=== PATIENT | male | born 1995 | race American Indian/Alaskan Native ===

== ENCOUNTER 2019-01-09 23:04 | Emergency (ER) | payer OTHER ==
[2019-01-09 23:31] VITALS: BP 147/85
[2019-01-10] MEDS ORDERED: IBUPROFEN PO ONE (00:25)
[2019-01-10] MEDS ORDERED: AUGMENTIN 875 MG PO ONE (00:25)
--- NOTE | 2019-01-10 01:10 | Emergency Department Report ---
ED General Adult HPI - General Chief complaint: Wound/Laceration Stated complaint: MOUTH LAC Source: patient Mode of arrival: Ambulatory Limitations: No Limitations - History of Present Illness Initial comments: Patient is a 23-year-old AA male with no past medical history presents to the ED with complaint of acute onset persistent painful swollen puncture wound with purulent discharge in the inner lower lip after being hit on the mild 24 hours ago during a basketball practice. Patient states that in the process he bit his lower lip and now is painful, swollen with purulent discharge. Patient denies fever, chills, nausea, vomiting, dizziness, headache, chest pain or shortness of breath and sore throat. Patient also denies fall, loss of consciousness, syncope or seizures. MD Complaint: Inner lip laceration and swelling -: Sudden, hour(s) (24) Location: mouth (inner lower lip) Radiation: non-radiation Severity scale (0 -10): 4 Quality: burning, aching, sharp Consistency: constant Improves with: none Worsens with: none Associated Symptoms: denies other symptoms. denies: confusion, chest pain, cough, diaphoresis, fever/chills, headaches, loss of appetite, malaise, nausea/vomiting, rash, seizure, shortness of breath, syncope, weakness Treatments Prior to Arrival: none - Related Data Previous Rx's Medication Instructions Recorded Last Taken Type Acetaminophen/Codeine [Tylenol 1 tab PO Q6H PRN #10 tab 01/10/19 Unknown Rx /Codeine # 3 tab] Amoxicillin/Potassium Clav 1 each PO Q12H #20 tablet 01/10/19 Unknown Rx [Augmentin 875-125 Tablet] Ibuprofen [Motrin] 800 mg PO Q8HR PRN #24 tablet 01/10/19 Unknown Rx Allergies Allergy/AdvReac Type Severity Reaction Status Date / Time No Known Allergies Allergy Verified 07/16/15 12:31 ED Review of Systems ROS: Stated complaint: MOUTH LAC Other details as noted in HPI Constitutional: denies: chills, fever Eyes: denies: eye pain, eye discharge, vision change ENT: other (Inner lower lip laceration, swelling with purulent discharge). denies: ear pain, throat pain Respiratory: denies: cough, shortness of breath, wheezing Cardiovascular: denies: chest pain, palpitations Endocrine: no symptoms reported. denies: see HPI, flushing, intolerance to cold, increased hunger, unexplained weight gain, unexplained weight loss Gastrointestinal: denies: abdominal pain, nausea, diarrhea Genitourinary: denies: urgency, dysuria Musculoskeletal: denies: back pain, joint swelling, arthralgia Skin: denies: rash, lesions Neurological: denies: headache, weakness, paresthesias Psychiatric: denies: anxiety, depression Hematological/Lymphatic: denies: easy bleeding, easy bruising ED Past Medical Hx - Past Medical History Previous Medical History?: Yes Additional medical history: BACK INJURY/ PAIN - Surgical History Past Surgical History?: Yes Additional Surgical History: LEFT HAND SURGERY - Social History Smoking Status: Never Smoker Substance Use Type: None - Medications Home Medications: Home Medications Medication Instructions Recorded Confirmed Last Taken Type Acetaminophen/Codeine [Tylenol 1 tab PO Q6H PRN #10 tab 01/10/19 Unknown Rx /Codeine # 3 tab] Amoxicillin/Potassium Clav 1 each PO Q12H #20 tablet 01/10/19 Unknown Rx [Augmentin 875-125 Tablet] Ibuprofen [Motrin] 800 mg PO Q8HR PRN #24 tablet 01/10/19 Unknown Rx ED Physical Exam - General Limitations: No Limitations General appearance: alert, in no apparent distress - Head Head exam: Present: atraumatic, normocephalic, normal inspection - Eye Eye exam: Present: normal appearance, PERRL, EOMI. Absent: scleral icterus, conjunctival injection, nystagmus Pupils: Present: normal accommodation - ENT ENT exam: Present: normal exam, normal orophraynx, mucous membranes moist, TM's normal bilaterally, normal external ear exam, other (Swollen lower lip due to a puncture wound with purulent discharge and tenderness) - Neck Neck exam: Present: normal inspection, full ROM - Respiratory Respiratory exam: Present: normal lung sounds bilaterally. Absent: respiratory distress, wheezes, rales, stridor, chest wall tenderness, prolonged expiratory - Cardiovascular Cardiovascular Exam: Present: regular rate, normal rhythm. Absent: systolic murmur, diastolic murmur, rubs, gallop - GI/Abdominal GI/Abdominal exam: Present: soft, normal bowel sounds. Absent: distended, tenderness, guarding, rebound, hyperactive bowel sounds, hypoactive bowel sounds - Rectal Rectal exam: Present: deferred - Extremities Exam Extremities exam: Present: normal inspection, full ROM, normal capillary refill. Absent: tenderness, pedal edema, joint swelling, calf tenderness - Back Exam Back exam: Present: normal inspection, full ROM. Absent: tenderness, CVA tenderness (R), CVA tenderness (L), muscle spasm, paraspinal tenderness - Neurological Exam Neurological exam: Present: alert, oriented X3, CN II-XII intact, normal gait, reflexes normal - Psychiatric Psychiatric exam: Present: normal affect, normal mood - Skin Skin exam: Present: warm, dry, intact, normal color, other (Swollen severely tender intraoral lower lip puncture wound with purulent discharge). Absent: rash ED Course Vital Signs 01/09/19 23:28 Temperature 99 F Pulse Rate 68 Respiratory 18 Rate Blood Pressure 147/85 O2 Sat by Pulse 100 Oximetry - Reevaluation(s) Reevaluation #1: 01/10/19 01:15 This is 23-year-old male presented to the ED with a swollen, painful intraoral lower lip puncture wound with purulent discharge. In the ED, patient is alert and oriented 3 and is not in distress. Patient was treated for pain and also started on antibiotics. Patient was discharged home on pain medications and antibiotics and advised to follow-up with his primary care physician in 7-10 days for reevaluation or return to the ED immediately if symptoms get worse. ED Medical Decision Making - Medical Decision Making This is 23-year-old male presented to the ED with a swollen, painful intraoral lower lip puncture wound with purulent discharge. In the ED, patient is alert and oriented 3 and is not in distress. Patient was treated for pain and also started on antibiotics. Patient was discharged home on pain medications and antibiotics and advised to follow-up with his primary care physician in 7-10 days for reevaluation or return to the ED immediately if symptoms get worse. - Differential Diagnosis infected lower lip puncture wound; cellulitis; lip abscess, puncture wound Critical care attestation.: If time is entered above; I have spent that time in minutes in the direct care of this critically ill patient, excluding procedure time. ED Disposition Clinical Impression: Swollen lip Laceration of intraoral surface of lip Qualifiers: Encounter type: initial encounter Qualified Code(s): S01.511A - Laceration without foreign body of lip, initial encounter Disposition: - TO HOME OR SELFCARE Is pt being admited?: No Does the pt Need Aspirin: No Condition: Stable Instructions: Puncture Wound (ED), Laceration (ED) Additional Instructions: Take medication with food, drink plenty of fluids and follow up with your primary care physician in 7-10 days for reevaluation. Return to the ED immediately if symptoms get worse. Prescriptions: Amoxicillin/Potassium Clav [Augmentin 875-125 Tablet] 1 each PO Q12H #20 tablet Ibuprofen [Motrin] 800 mg PO Q8HR PRN #24 tablet PRN Reason: Pain , Severe (7-10) Acetaminophen/Codeine [Tylenol /Codeine # 3 tab] 1 tab PO Q6H PRN #10 tab PRN Reason: Pain , Severe (7-10) Referrals: JAMISON KRISHNAMURTHY [Other] - 3-5 Days Time of Disposition: 01:08 Print Language: CHADIAN
== END 2019-01-10 01:20 | disposition home or self-care (01) ==
LOC: ED 23:04
DX: S01.511A Laceration without foreign body of lip, initial encounter (principal); Z79.899 Other long term (current) drug therapy; X58.XXXA Exposure to other specified factors, initial encounter; Y93.89 Activity, other specified; Y92.89 Other specified places as the place of occurrence of the external cause; Y99.8 Other external cause status
CPT/HCPCS: 99283

== ENCOUNTER → 2020-03-24 08:15 | Emergency (ER) | payer SELFPAY ==
[2020-03-31 11:27] LABS: Alanine Aminotransferase 19 units/L (7-56); Albumin 4.4 g/dL (3.9-5); BUN/Creatinine Ratio 8; Blood Urea Nitrogen 8 mg/dL (9-20); Calcium 9.2 mg/dL (8.4-10.2)
[2020-03-31 11:28] LABS: Hemolysis Index 10
--- NOTE | 2020-04-08 09:44 | XRay Report ---
CHEST 2 VIEWS INDICATION / CLINICAL INFORMATION: CHEST PAIN. COMPARISON: None available. FINDINGS: SUPPORT DEVICES: None. HEART / MEDIASTINUM: No significant abnormality. LUNGS / PLEURA: No significant pulmonary or pleural abnormality. No pneumothorax. ADDITIONAL FINDINGS: No significant additional findings. IMPRESSION: 1. No acute findings. Signer Name: Janes Fofana MD Signed: 04/08/2020 9:40 AM Workstation Name: [id number]
== END | disposition home or self-care (01) ==
LOC: ED 08:15
DX: R07.89 Other chest pain (principal); Z53.21 Procedure and treatment not carried out due to patient leaving prior to being seen by health care provider
CPT/HCPCS: 36415; 71046; 80053; 84484; 85025; 93005